=== PATIENT | male | born 1960 | race Caucasian/White ===

== ENCOUNTER 2018-01-21 21:14 | Emergency (ER) | payer SELFPAY ==
--- NOTE | 2018-01-21 22:08 | Emergency Department Report ---
ED Fall HPI - General Chief Complaint: Fall Stated Complaint: TEAZER AND MOUTH INJURY Time Seen by Provider: 01/21/18 21:59 Source: patient, police Mode of arrival: Ambulatory - History of Present Illness Initial Comments: He was being chased by the police and was tazed. Then, he fell and hit his head causing one of his front teeth to fall out. No loss of consciousness. He also has a cut on his chin and one of the taser barbs in his head. Patient is brought in by police for medical evaluation. Not on blood thinners. - Related Data Previous Rx's Medication Instructions Recorded Last Taken Type Chlorhexidine Mouthwash [Peridex] 15 ml MM BID #1 bottle 01/21/18 Unknown Rx Penicillin Vk [Veetids TAB] 500 mg PO QID #50 tablet 01/21/18 Unknown Rx Allergies Allergy/AdvReac Type Severity Reaction Status Date / Time No Known Allergies Allergy Unverified 01/21/18 21:28 ED Review of Systems ROS: Stated complaint: TEAZER AND MOUTH INJURY Other details as noted in HPI Comment: All other systems reviewed and negative ENT: dental pain, other (chin and posterior head pain) ED Past Medical Hx - Past Medical History Previous Medical History?: No - Surgical History Past Surgical History?: Yes Hx Appendectomy: Yes - Social History Smoking Status: Current Every Day Smoker Substance Use Type: None - Medications Home Medications: Home Medications Medication Instructions Recorded Confirmed Last Taken Type Chlorhexidine Mouthwash [Peridex] 15 ml MM BID #1 bottle 01/21/18 Unknown Rx Penicillin Vk [Veetids TAB] 500 mg PO QID #50 tablet 01/21/18 Unknown Rx ED Physical Exam - General Limitations: No Limitations General appearance: alert, in no apparent distress - Head Head exam: Present: atraumatic, normocephalic - Eye Eye exam: Present: normal appearance - ENT ENT exam: Present: mucous membranes moist, other (tooth #8 avulsed, but the periodontal ligament is attached. No alveolar deformity felt. 2 cm chin laceration in his . 1 taser filiberto located in his posterior left scalp) - Neck Neck exam: Present: normal inspection - Respiratory Respiratory exam: Present: normal lung sounds bilaterally. Absent: respiratory distress - Cardiovascular Cardiovascular Exam: Present: regular rate, normal rhythm. Absent: systolic murmur, diastolic murmur, rubs, gallop - GI/Abdominal GI/Abdominal exam: Present: soft, normal bowel sounds. Absent: distended, tenderness - Rectal Rectal exam: Present: deferred - Extremities Exam Extremities exam: Present: normal inspection - Back Exam Back exam: Present: normal inspection - Neurological Exam Neurological exam: Present: alert, oriented X3 - Psychiatric Psychiatric exam: Present: normal affect, normal mood - Skin Skin exam: Present: warm, dry, intact, normal color. Absent: rash ED Course Vital Signs 01/21/18 01/21/18 21:29 22:37 Temperature 97.8 F 98.0 F Pulse Rate 74 89 Respiratory 16 20 Rate Blood Pressure 119/78 Blood Pressure 136/84 [Left] O2 Sat by Pulse 99 99 Oximetry ED Medical Decision Making - Medical Decision Making 57-year-old male who presents to the ER with multiple complaints. From a trauma perspective, patient is acting appropriately and intervals fall from standing. Patient has no facial bone tenderness. Do not think the patient needs imaging of his head or face. Tooth #8 was a false, but the periodontal ligament was still attached. After irrigating with saline, the tooth was replaced with minimal effort. There is no alveolar ridge deformity or excessive tenderness appreciated. No suspicion for alveolar fracture. Patient will be placed on penicillin/Peridex for management of this injury. Patient has been told to follow-up with a dentist for further care of his tooth. The Taser filiberto was removed at the bedside with minimal effort. A bandage was applied afterwards. Patient's chin shows a 2 cm superficial laceration in his . I offered to repair with sutures, the patient's that he didn't want it. Educated patient on wound care and given Steri-Strips. His tetanus was updated in the ER. - Differential Diagnosis ICH, facial fracture, closed head injury, laceration, contusion Critical care attestation.: If time is entered above; I have spent that time in minutes in the direct care of this critically ill patient, excluding procedure time. ED Disposition Clinical Impression: Laceration of chin without complication, Pain, dental, Closed head injury Disposition: TO HOME OR SELFCARE Is pt being admited?: No Does the pt Need Aspirin: No Condition: Stable Instructions: Laceration (ED), Acute dental trauma (ED) Additional Instructions: Follow up with a dentist in 24 hours for further management of your tooth. Keep your chin laceration clean until it heals. Prescriptions: Chlorhexidine Mouthwash [Peridex] 15 ml MM BID #1 bottle Penicillin Vk [Veetids TAB] 500 mg PO QID #50 tablet Referrals: RENITA TRUONG MD [Primary Care Provider] - 3-5 Days
[2018-01-21] MEDS ORDERED: BOOSTRIX IM ONE (22:11)
[2018-01-21 22:39] VITALS: BP 136/84
== END 2018-01-21 22:35 | disposition home or self-care (01) ==
LOC: ED 21:14
DX: S01.81XA Laceration without foreign body of other part of head, initial encounter (principal); F17.200 Nicotine dependence, unspecified, uncomplicated; W45.8XXA Other foreign body or object entering through skin, initial encounter; Y93.89 Activity, other specified; Y92.89 Other specified places as the place of occurrence of the external cause; Y99.8 Other external cause status
CPT/HCPCS: 99283